=== PATIENT | male | born 1980 | race Caucasian/White ===

== ENCOUNTER 2018-12-21 17:40 | Observation (INO) | payer SELFPAY ==
--- NOTE | 2018-12-21 17:46 | PDOC ---
History of Present Illness - General Chief Complaint: Wound Stated Complaint: SWELLING OF FACE Time Seen by Provider: 12/21/18 17:46 History Source: Patient - History of Present Illness Initial Comments: 12/21/18 18:37 The patient is a 38 year old male with a PMH of Asthma (1 hospitalization, no intubations) presents to the ED c/o diffuse facial rash. Patient recently returned from a 1 week trip to the [facility]. On the plane ride home patient had a subjective fever. States he noticed a facial sunburn 2-3 days after returning to the [place] - he self exfoliated part of his skin while showering and applied coconut oil, aloe vera and lamb butter however the rash spread and started to develop blisters that became purulent today prompting his mother (a former [facility] physician) to bring him to our ED. Patient denies any tongue/pharyngeal swelling, shortness of breath, repeat fevers, chills, nausea/vomiting. NKDA Surgical: none Social: social alcohol, denies other toxic habits As per EMR no prior evaluation in our ED. Past History - Past Medical History Allergies/Adverse Reactions: Allergies Allergy/AdvReac Type Severity Reaction Status Date / Time No Known Allergies Allergy Verified 12/21/18 17:41 Home Medications: Ambulatory Orders Albuterol Sulfate Inhaler - [Ventolin Hfa Inhaler -] 1 - 2 inh PO Q4H 12/21/18 Budesonide/Formeterol Fumarate [SYMBICORT 160/4.5mcg -] 1 inh PO BID 12/21/18 Review of Systems - Review of Systems Constitutional: Yes: Fever. No: Chills HEENTM: Yes: Ear Discharge. No: Recent change in vision, Hearing Loss, Throat Swelling Respiratory: No: Cough, Shortness of Breath Cardiac (ROS): No: Chest Pain, Lightheadedness ABD/GI: No: Constipated, Diarrhea, Nausea, Vomiting *Physical Exam - Physical Exam Comments: 12/21/18 18:51 Alert, non-toxic appearing male HEENT: diffuse vesicular facial rash with some clear discharge; B/L non-bulging/ erythematous TMs w/mild auricular discharge B/L; B/L conjunctivitis CV: S1/S2, no M/R/G Abdomen: soft, no TTP, (+) BS Respiratory: CLTA B/L, no M/R/G ED Treatment Course - LABORATORY CBC & Chemistry Diagram: 12/21/18 18:00 12/21/18 18:00 Medical Decision Making - Medical Decision Making 12/21/18 18:53 38 year old non-toxic appearing male with diffuse vesicular facial rash; h/o recent international travel and facial sunburn with mild exfoliation. VS unremarkable. Frontal diagnosis: cellulitis 2/2 to infected suburn vs. facial impetigo. Also consider bacterial pathogens in light of patient's recent international travel, h/o fever. Will obtain basic labs, wound culture, blood cultures. OTD of Vancomycin and Zosyn Patient declining pain medications at this time. Reassess. 12/21/18 18:57 Patient signed out to Dr. Crouch (Resident) and Dr. Yarbrough (Attending) for further evaluation. Labs, blood cultures pending. Likely disposition is admit for IV antibiotics, ID consult. *DC/Admit/Observation/Transfer Diagnosis at time of Disposition: Impetigo, Cellulitis - Discharge Dispostion Condition at time of disposition: Stable - Referrals - Patient Instructions - Post Discharge Activity
[2018-12-21 18:31] LABS: BASO % 0.4 % (0-2.0); EOS % 3.1 % (0-4.5); HEMATOCRIT 44.5 % (35.4-49); HEMOGLOBIN 15.3 GM/dL (11.7-16.9); LYMPH % 19.4 % (8-40); MCHC 34.4 g/dl (32.0-35.9); MEAN CELL VOLUME 84.2 fl (80-96); MEAN PLT VOLUME 7.3 fl (7.5-11.1); MONO % 10.6 % (3.8-10.2); NEUT % 66.5 % (42.8-82.8); PLATELET COUNT 219 K/MM3 (134-434); RBC 5.28 M/mm3 (4.00-5.60); RDW 13.5 % (11.9-15.9); WHITE BLOOD COUNT 8.5 K/mm3 (4.0-10.0)
[2018-12-21] MEDS ORDERED: VANCOMYCIN 1,000 MG in DEXTROSE 5%-WATER - 250 ML IVPB ONE (18:35)
[2018-12-21] MEDS ORDERED: PIPERACILLIN/TAZOB 4.5 GM 4.5 GM in DEXTROSE 5%-WATER 100 ML IVPB ONE (18:35)
[2018-12-21 19:17] LABS: ERYTHROCYTE SEDIMENTATION RATE 29 mm/hr (0-10)
[2018-12-21 19:20] LABS: ALBUMIN 3.2 g/dl (3.4-5.0); ALK PHOS 94 U/L (45-117); BILIRUBIN,TOTAL 0.3 mg/dL (0.2-1); BLOOD UREA NITROGEN 12 mg/dL (7-18); CO2 26 mmol/L (21-32); GLUCOSE,RANDOM 104 mg/dL (74-106); SGOT/AST 17 U/L (15-37); SGPT/ALT 32 U/L (13-61); TOT PROT 7.5 g/dl (6.4-8.2)
[2018-12-21] MEDS ORDERED: PIPERACILLIN/TAZOB 4.5 GM 4.5 GM/100 ML BAG IVPB ONE (19:20)
[2018-12-21] MEDS ORDERED: VANCOMYCIN 1 GRAM (PRE-DOCKED) 1,000 MG/250 ML BAG IVPB ONE (19:21)
--- NOTE | 2018-12-21 19:44 | PDOC ---
*Physical Exam - Vital Signs Last Vital Signs Temp Pulse Resp BP Pulse Ox 98.1 F 81 18 129/73 95 12/21/18 17:45 12/21/18 17:45 12/21/18 17:45 12/21/18 17:45 12/21/18 17:45 - Physical Exam Comments: 12/21/18 19:41 General Appearance: Nourished. No Apparent Distress HEENT: Diffuse facial rash noted with a honeycomb appearance. Bilateral conjunctiva injection. No Pharyngeal Erythema, Tonsillar Exudate, Tonsillar Erythema Neck: No Cervical Lymphadenopathy Respiratory/Chest: Lungs Clear, Normal Breath Sounds. No Crackles, Rales, Rhonchi, Wheezing Cardiovascular: Regular Rhythm, Regular Rate. No Murmur, Gallops, Rubs Gastrointestinal/Abdominal: Normal Bowel Sounds, Soft. No Guarding, Rebound, Tenderness Musculoskeletal: No CVA Tenderness Extremity: Normal Capillary Refill Integumentary: Normal Color, Dry, Warm Neurologic: Fully Oriented, Alert, Normal Mood/Affect, Normal Response, ED Treatment Course - LABORATORY CBC & Chemistry Diagram: 12/21/18 18:00 12/21/18 18:00 - ADDITIONAL ORDERS Additional order review: Laboratory Results 12/21/18 18:00 Sodium Potassium Chloride Carbon Dioxide 26 Anion Gap No Result Required. BUN 12 Creatinine 1.0 Creat Clearance w eGFR 84.55 Random Glucose 104 Calcium Total Bilirubin 0.3 AST 17 ALT 32 Alkaline Phosphatase 94 C-Reactive Protein 3.6 H Total Protein 7.5 Albumin 3.2 L 12/21/18 18:00 RBC 5.28 MCV 84.2 MCHC 34.4 RDW 13.5 MPV 7.3 L Neutrophils % 66.5 Lymphocytes % 19.4 Monocytes % 10.6 H Eosinophils % 3.1 Basophils % 0.4 Progress Note - Progress Note Progress Note: Received sign out from Dr. Jara. The patient is a 38 year old male who presented for evaluation of a diffuse facial rash. The patient is pending cbc, cmp for further work up. The rash appears to be a diffuse impetigo and the patient was treated with vanc and zosyn here in the ED. He will require obs admission for further management. Medical Decision Making - Medical Decision Making 12/21/18 20:41 CBC, CMP are unremarkable. We discussed the case with the admitting team who accepted the patient for admission. *DC/Admit/Observation/Transfer Diagnosis at time of Disposition: Impetigo Cellulitis Qualifiers: Site of cellulitis: face Qualified Code(s): L03.211 - Cellulitis of face - Discharge Dispostion Condition at time of disposition: Stable Decision to Admit order: Yes - Referrals - Patient Instructions - Post Discharge Activity
[2018-12-21] MEDS ORDERED: ALBUTEROL SO4 8 GM HFA INHALER IH PRN (20:35)
--- NOTE | 2018-12-21 20:39 | PN ---
Teaching Attending Note Name of Resident: Yan Tafoya ATTENDING PHYSICIAN STATEMENT I saw and evaluated the patient. I reviewed the resident's note and discussed the case with the resident. I agree with the resident's findings and plan as documented. SUBJECTIVE: Seen and examined; please refer to resident note for further historical information. Briefly, this is a 38 y/o male PMH asthma presents to the ER with a CC of facial rash/cellulitis. Went to the [facility] 1 week ago and got sunburnt; started desquamating and was trying to treat with home remedies. The rash worsened and developed vesicles and some pain. His mother, a MD, recommended he come to the ER for further assessment. It is located over the front of his face and doesn't spread to other areas where he was found to be sunburnt. He did go swimming while on vacation, and to the best of his recollection it was in saltwater. He denies having any open wounds, etc. 10 sys ROS done and negative aside from HPI PMH, PSH, SH, FH reviewed Home Medications Medication Instructions Recorded Albuterol Sulfate Inhaler - 1 - 2 inh PO Q4H 12/21/18 [Ventolin Hfa Inhaler -] Budesonide/Formeterol Fumarate 1 inh PO BID 12/21/18 [SYMBICORT 160/4.5mcg -] OBJECTIVE: VS, labs, imaging reviewed NAD, AAO, resting comfortably in bed NC AT EOMI PERRLA Impitego-like changes covering face with some adjacent cellulitic changes; some crusted vesicles NT ND +BS CN2-12 wnl, no fnd Normal mood, appropriate behavior ASSESSMENT AND PLAN: 1) Facial cellulitis vs. impetigo -Will cover with IV vancomycin and ceftriaxone for now; afebrile and hemodynamically stable with no white count. No visual changes -Will consider presence of atypical mycobacteria, vibrio, etc. with recent travel history -Pain control 2) Asthma -Continue home medications
--- NOTE | 2018-12-21 20:44 | HP ---
Addendum entered and electronically signed by Yan Tafoya, RESIDENT 21:21: Added on Ceftriaxone for G- coverage given report of swimming on vacation Original Note: <Yan Tafoya - Last Filed: 12/21/18 20:37> CHIEF COMPLAINT: facial rash PCP: HISTORY OF PRESENT ILLNESS: Patient is a 38 y/o M w/ PMHx asthma p/w diffuse vesicular facial rash with clear discharge. 1 w/a went on trip to [facility], developed sunburn upon return, facial skin began desquamating several days after return, Pt attempted home topical remedies without relief, rash began spreading to cover face diffusely and became vesicular with discharge. ROS otherwise negative. No other skin areas affected. Afebrile w/ stable vitals on presentation. No WBC elevation. Given vancomycin and zosyn in ED. Recent Travel: As per HPI PAST MEDICAL HISTORY: As per HPI PAST SURGICAL HISTORY: none Social History: Smoking: no Alcohol: socially Drugs: no Family History: Allergies No Known Allergies Allergy (Verified 12/21/18 17:41) HOME MEDICATIONS: Home Medications Medication Instructions Recorded Albuterol Sulfate Inhaler - 1 - 2 inh PO Q4H 12/21/18 [Ventolin Hfa Inhaler -] Budesonide/Formeterol Fumarate 1 inh PO BID 12/21/18 [SYMBICORT 160/4.5mcg -] REVIEW OF SYSTEMS As per HPI PHYSICAL EXAMINATION Vital Signs - 24 hr 12/21/18 17:45 Temperature 98.1 F Pulse Rate 81 Respiratory 18 Rate Blood Pressure 129/73 O2 Sat by Pulse 95 Oximetry (%) GENERAL: A&Ox3, NAD HEAD: diffuse vesicular rash anteriorly with clear discharge EYES: +conjunctival injection, PERRLA, EOMI EARS, NOSE, THROAT: Ears normal, nares patent, oropharynx clear without exudates. Moist mucous membranes. NECK: Normal range of motion, supple without lymphadenopathy, JVD, or masses. LUNGS: CTA b/l HEART: RRR no m/r/g ABDOMEN: Soft, nontender, not distended, normoactive bowel sounds, no guarding, no rebound, no masses. No hepatomegaly or splenomegaly. MUSCULOSKELETAL: Normal range of motion at all joints. No bony deformities or tenderness. No CVA tenderness. UPPER EXTREMITIES: 2+ pulses, warm, well-perfused. No cyanosis. No clubbing. No peripheral edema. LOWER EXTREMITIES: 2+ pulses, warm, well-perfused. No calf tenderness. No peripheral edema. NEUROLOGICAL: bioprocess engineer, motor, sensory systems w/o focal deficit PSYCHIATRIC: Cooperative. Good eye contact. Appropriate mood and affect. SKIN: Warm, dry, normal turgor, no affected skin regions apart from face Laboratory Results - last 24 hr 12/21/18 12/21/18 18:00 18:00 WBC 8.5 RBC 5.28 Hgb 15.3 Hct 44.5 MCV 84.2 MCH 29.0 MCHC 34.4 RDW 13.5 Plt Count 219 MPV 7.3 L Absolute Neuts (auto) 5.6 Neutrophils % 66.5 Lymphocytes % 19.4 Monocytes % 10.6 H Eosinophils % 3.1 Basophils % 0.4 Nucleated RBC % 0 ESR 29 H Sodium Potassium Chloride Carbon Dioxide 26 Anion Gap No Result Required. BUN 12 Creatinine 1.0 Creat Clearance w eGFR 84.55 Random Glucose 104 Calcium Total Bilirubin 0.3 AST 17 ALT 32 Alkaline Phosphatase 94 C-Reactive Protein 3.6 H Total Protein 7.5 Albumin 3.2 L ASSESSMENT/PLAN: A: -38 y/o M w/ PMHx asthma p/w diffuse facial cellulitis 2/2 desquamating sunburn from foreign travel -local infection, no signs of sepsis -given Vancomycin/Zosyn in ED P: -ID consulted by ED -initiating Clindamycin, may be transitioned to PO in AM -BCx and wound Cx pending -restarted home inhalers -no IVF -f/u BMP -regular diet -mechanical DVT PPx -full code -observe on med/surg Visit type - Emergency Visit Emergency Visit: Yes Care time: The patient presented to the Emergency Department on the above date and was hospitalized for further evaluation of their emergent condition. - New Patient This patient is new to me today: Yes Date on this admission: 12/21/18 - Critical Care Critical Care patient: No <Enzo Su - Last Filed: 12/22/18 22:20> Seen and examined; agree with above aside from what is supplemented in my own documentation. Repeated all oakley parts of exam, supervised all vital parts of patient care.
[2018-12-21] MEDS ORDERED: CEFTRIAXONE 1 GM in DEXTROSE 5%-WATER - 50 ML IVPB ONE (21:07)
[2018-12-21 21:18] LABS: CALCIUM 8.9 mg/dL (8.5-10.1); POTASSIUM 3.7 mmol/L (3.5-5.1)
[2018-12-21 21:23] LABS: ALBUMIN 3.6 g/dl (3.4-5.0); ALK PHOS 103 U/L (45-117); ANION GAP 7 MMOL/L (8-16); BILIRUBIN,TOTAL 0.6 mg/dL (0.2-1); BLOOD UREA NITROGEN 12 mg/dL (7-18); CALCIUM 8.7 mg/dL (8.5-10.1); CHLORIDE 103 mmol/L (98-107); CO2 27 mmol/L (21-32); CREATININE 1.1 mg/dL (0.55-1.3); GLUCOSE,RANDOM 112 mg/dL (74-106); POTASSIUM 3.7 mmol/L (3.5-5.1); SGOT/AST 16 U/L (15-37); SGPT/ALT 37 U/L (13-61); SODIUM 137 mmol/L (136-145); TOT PROT 7.6 g/dl (6.4-8.2)
[2018-12-21 22:19] VITALS: BMI 26.9
[2018-12-21] MEDS ORDERED: DEXTROSE 5%-WATER - 50 ML IVPB ONE (22:32)
[2018-12-21] MEDS ORDERED: cefTRIAXone SODIUM 1 GM VIAL ONE (22:32)
[2018-12-21] MEDS: BUDESONIDE/FORMETEROL FUMARATE 160/4.5 mcg INHALER IH SCH (22:40)
[2018-12-22] MEDS ORDERED: CLINDAMYCIN 300 MG PREMIX IVPB 300 MG/50 ML BAG IVPB SCH (02:00)
--- NOTE | 2018-12-22 02:08 | PDOC ---
Documentation entered by Rajeev Bergman SCRIBE, acting as scribe for Mellissa Yarbrough MD. Mellissa Yarbrough MD: This documentation has been prepared by the Madalyn ac Nirvannie, SCRIBE, under my direction and personally reviewed by me in its entirety. I confirm that the documentation accurately reflects all work, treatment, procedures, and medical decision making performed by me. Attending Attestation - Resident Resident Name: EstefaniAngie - ED Attending Attestation I have performed the following: I have examined & evaluated the patient, The case was reviewed & discussed with the resident, I agree w/resident's findings & plan - HPI HPI: 12/21/18 18:39 The patient is a 38 year old male, with a significant past medical history of asthma, who presents to the emergency department with, diffuse facial rash. As per patient, he was recently in the [facility] for a week and upon his arrival he began to experience a diffuse rash to the face which he put coconut oil, aloe vera, and lamb butter on his wound, without relief. He notes 2 days of subjective fevers and chills. Today he notes, purulent discharge from his wounds prompting his arrival to the ED. He denies any recent nausea, vomit, diarrhea or constipation. He denies any recent chest pain or shortness of breath. Allergies: Asthma - Physicial Exam PE: 12/21/18 18:39 GENERAL: Well-appearing, well-nourished. No apparent distress. HEENT: +Extensive wound with erythema and weeding to the diffuse face. Injected conjunctiva. CARDIOVASCULAR: EXTREMITIES: Normal ROM in all four extremities. No gross deformities. SKIN: +abrasion to the left elbow s/p fall. NEUROLOGICAL: No focal neurological deficits. - Medical Decision Making 12/22/18 02:07 diff diag includes impetigo, contact dermatitis,cellulitis pt admitted for further eval, empiric antibiotics
[2018-12-22 07:28] LABS: BASO % 0.2 % (0-2.0); EOS % 1.4 % (0-4.5); HEMATOCRIT 41.7 % (35.4-49); HEMOGLOBIN 14.4 GM/dL (11.7-16.9); LYMPH % 13.4 % (8-40); MCH 28.7 pg (25.7-33.7); MCHC 34.7 g/dl (32.0-35.9); MEAN CELL VOLUME 82.9 fl (80-96); MEAN PLT VOLUME 7.3 fl (7.5-11.1); MONO % 10.9 % (3.8-10.2); NEUT % 74.1 % (42.8-82.8); PLATELET COUNT 223 K/MM3 (134-434); RBC 5.03 M/mm3 (4.00-5.60); RDW 13.5 % (11.9-15.9); WHITE BLOOD COUNT 9.3 K/mm3 (4.0-10.0)
[2018-12-22 07:56] LABS: ANION GAP 8 MMOL/L (8-16); BLOOD UREA NITROGEN 12 mg/dL (7-18); CALCIUM 8.6 mg/dL (8.5-10.1); CHLORIDE 105 mmol/L (98-107); CO2 27 mmol/L (21-32); GLUCOSE,RANDOM 108 mg/dL (74-106); MAGNESIUM 1.8 mg/dL (1.8-2.4); PHOSPHOROUS 4.5 mg/dL (2.5-4.9); POTASSIUM 4.3 mmol/L (3.5-5.1); SODIUM 140 mmol/L (136-145)
[2018-12-22 08:13] VITALS: BP 119/72
[2018-12-22] MEDS ORDERED: LACTATED RINGERS SOLUTION 1,000 ML/1,000 ML INFUS.BAG IV SCH (08:45)
--- NOTE | 2018-12-22 09:47 | PN ---
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) developed fever Saturday night after return, face became red , fever resolved he thought he had sun burn face started desquamating on he used topicals coconut oil, aloe vera gel, lamb butter, face got stiff with blisters and started draining no further fevers came to ED pmh seasonal allergies, mild asthma swam in ocean while in [facility] suspect impetigo no history of prior excema would continue strep/staph coverage-vancomycin/rocephin for now, po clindamycin 300 tid for discharge and ask dermatology to evaluate contact isolation for 24 hours d/w hospitalist service spoke with derm- she will be in at 5 pm to see him thanks
[2018-12-22] MEDS ORDERED: VANCOMYCIN HCL 1,250 MG in DEXTROSE 5%-WATER - 250 ML IVPB SCH (10:00)
[2018-12-22] MEDS ORDERED: CEFTRIAXONE 1 GM in DEXTROSE 5%-WATER - 50 ML IVPB SCH (10:15)
[2018-12-22] MEDS ORDERED: SODIUM CHLORIDE 1,000 ML IV SCH (10:15)
[2018-12-22] MEDS ORDERED: DEXTROSE 5%-WATER - 50 ML IVPB ONE (10:29)
[2018-12-22] MEDS ORDERED: cefTRIAXone SODIUM 1 GM VIAL ONE (10:29)
[2018-12-22] MEDS: BUDESONIDE/FORMETEROL FUMARATE 160/4.5 mcg INHALER IH SCH (10:38)
--- NOTE | 2018-12-22 11:39 | PN ---
Teaching Attending Note Name of Resident: Hung Mccormack ATTENDING PHYSICIAN STATEMENT I saw and evaluated the patient. I reviewed the resident's note and discussed the case with the resident. I agree with the resident's findings and plan as documented. SUBJECTIVE: He reports he is feeling better. OBJECTIVE: Vital Signs Period Temp Pulse Resp BP Sys/Ruvalcaba Pulse Ox Last 24 Hr 98.1 F-98.4 F 66-81 18-20 119-129/62-73 95-98 HEART: S1S2, RRR LUNGS: Clear ABDOMEN: Soft, non-tender, non-distended, normal BS EXTREMITIES: No edema SKIN: Sharply demarcated desquamating, yellow crusted rash on face sparing nose , chin, and scalp except one area at top of head and on back of neck Laboratory Results - last 24 hr 12/21/18 12/21/18 12/21/18 18:00 18:00 20:35 WBC 8.5 RBC 5.28 Hgb 15.3 Hct 44.5 MCV 84.2 MCH 29.0 MCHC 34.4 RDW 13.5 Plt Count 219 MPV 7.3 L Absolute Neuts (auto) 5.6 Neutrophils % 66.5 Lymphocytes % 19.4 Monocytes % 10.6 H Eosinophils % 3.1 Basophils % 0.4 Nucleated RBC % 0 ESR 29 H Sodium 137 Potassium 3.7 Chloride 103 Carbon Dioxide 26 28 Anion Gap No Result Required. 6 L BUN 12 Creatinine 1.0 Creat Clearance w eGFR 84.55 Random Glucose 104 Calcium 8.9 Phosphorus Magnesium Total Bilirubin 0.3 AST 17 ALT 32 Alkaline Phosphatase 94 C-Reactive Protein 3.6 H Total Protein 7.5 Albumin 3.2 L 12/21/18 12/22/18 12/22/18 20:35 06:30 06:30 WBC 9.3 RBC 5.03 Hgb 14.4 Hct 41.7 MCV 82.9 MCH 28.7 MCHC 34.7 RDW 13.5 Plt Count 223 MPV 7.3 L Absolute Neuts (auto) 6.9 Neutrophils % 74.1 Lymphocytes % 13.4 D Monocytes % 10.9 H Eosinophils % 1.4 Basophils % 0.2 Nucleated RBC % 0 ESR Sodium 137 140 Potassium 3.7 4.3 Chloride 103 105 Carbon Dioxide 27 27 Anion Gap 7 L 8 BUN 12 12 Creatinine 1.1 1.0 Creat Clearance w eGFR 75.74 84.55 Random Glucose 112 H 108 H Calcium 8.7 8.6 Phosphorus 4.5 Magnesium 1.8 Total Bilirubin 0.6 AST 16 ALT 37 Alkaline Phosphatase 103 C-Reactive Protein Total Protein 7.6 Albumin 3.6 Current Medications Generic Name Dose Route Start Last Admin Trade Name Freq PRN Reason Stop Dose Admin Albuterol Sulfate 2 puff 12/21/18 20:35 Ventolin Hfa Inhaler - IH Q4H PRN SHORT OF BREATH/WHEEZING Budesonide/Formoterol Fumarate 1 puff 12/21/18 22:00 12/22/18 10:38 Symbicort 160/4.5mcg - IH 1 puff BID LOS Administration Vancomycin HCl 1,250 mg/ 250 mls @ 166.667 mls/hr 12/22/18 10:00 Dextrose IVPB Q12H LOS Protocol Sodium Chloride 1,000 mls @ 100 mls/hr 12/22/18 10:15 12/22/18 10:36 Normal Saline - IV 100 mls/hr ASDIR LOS Administration Ceftriaxone Sodium 1 gm/ 50 mls @ 100 mls/hr 12/22/18 10:15 12/22/18 10:35 Dextrose IVPB 100 mls/hr DAILY LOS Administration Protocol ASSESSMENT AND PLAN: This is a 38 year old man with a history of asthma who presented to the ED with a rash on his face which developed after returning home from a trip to the [facility]. 1. Impetigo of the face - Continue ceftriaxone, vancomycin - Wound culture pending - Dermatology evaluation 2. Asthma - Stable - Continue Symbicort, albuterol as needed
[2018-12-22] MEDS ORDERED: MUPIROCIN 2% TOPICAL OINTMENT 22 GM TUBE TP SCH (13:15)
--- NOTE | 2018-12-22 13:38 | DS ---
Physical Exam: SUBJECTIVE: Patient seen and examined OBJECTIVE: Vital Signs Period Temp Pulse Resp BP Sys/Ruvalcaba Pulse Ox Last 24 Hr 98.1 F-98.4 F 66-81 18-20 119-129/62-73 95-98 PHYSICAL EXAM GENERAL: The patient is awake, alert, and fully oriented, in no acute distress. HEAD: Normal with no signs of trauma. EYES: PERRL, extraocular movements intact, sclera anicteric, conjunctiva clear. ENT: Ears normal, nares patent, oropharynx clear without exudates, moist mucous membranes. NECK: Trachea midline, full range of motion, supple. LUNGS: Breath sounds equal, clear to auscultation bilaterally, no wheezes, no crackles, no accessory muscle use. HEART: Regular rate and rhythm, S1, S2 without murmur, rub or gallop. ABDOMEN: Soft, nontender, nondistended, normoactive bowel sounds, no guarding, no rebound, no hepatosplenomegaly, no masses. EXTREMITIES: 2+ pulses, warm, well-perfused, no edema. NEUROLOGICAL: Cranial nerves II through XII grossly intact. Normal speech, gait not observed. PSYCH: Normal mood, normal affect. SKIN: Warm, dry, normal turgor, no rashes or lesions noted. LABS Laboratory Results - last 24 hr 12/21/18 12/21/18 12/21/18 18:00 18:00 20:35 WBC 8.5 RBC 5.28 Hgb 15.3 Hct 44.5 MCV 84.2 MCH 29.0 MCHC 34.4 RDW 13.5 Plt Count 219 MPV 7.3 L Absolute Neuts (auto) 5.6 Neutrophils % 66.5 Lymphocytes % 19.4 Monocytes % 10.6 H Eosinophils % 3.1 Basophils % 0.4 Nucleated RBC % 0 ESR 29 H Sodium 137 Potassium 3.7 Chloride 103 Carbon Dioxide 26 28 Anion Gap No Result Required. 6 L BUN 12 Creatinine 1.0 Creat Clearance w eGFR 84.55 Random Glucose 104 Calcium 8.9 Phosphorus Magnesium Total Bilirubin 0.3 AST 17 ALT 32 Alkaline Phosphatase 94 C-Reactive Protein 3.6 H Total Protein 7.5 Albumin 3.2 L 12/21/18 12/22/18 12/22/18 20:35 06:30 06:30 WBC 9.3 RBC 5.03 Hgb 14.4 Hct 41.7 MCV 82.9 MCH 28.7 MCHC 34.7 RDW 13.5 Plt Count 223 MPV 7.3 L Absolute Neuts (auto) 6.9 Neutrophils % 74.1 Lymphocytes % 13.4 D Monocytes % 10.9 H Eosinophils % 1.4 Basophils % 0.2 Nucleated RBC % 0 ESR Sodium 137 140 Potassium 3.7 4.3 Chloride 103 105 Carbon Dioxide 27 27 Anion Gap 7 L 8 BUN 12 12 Creatinine 1.1 1.0 Creat Clearance w eGFR 75.74 84.55 Random Glucose 112 H 108 H Calcium 8.7 8.6 Phosphorus 4.5 Magnesium 1.8 Total Bilirubin 0.6 AST 16 ALT 37 Alkaline Phosphatase 103 C-Reactive Protein Total Protein 7.6 Albumin 3.6 HOSPITAL COURSE: Date of Admission:12/21/18 Date of Discharge: 12/22/18 Discharge Summary Reason For Visit: SWELLING OF FACE Current Active Problems Cellulitis (Acute) Impetigo (Acute) Condition: Improved - Instructions Diet, Activity, Other Instructions: You were admitted to the hospital for the treatment of a likely skin infection on your face We treated you with IV fluids and antibiotics It is possible that you have Impetigo, an infection on your skin, which could have been superimposed on a sunburn you got while on vacation Please take clindamycin 300mg three times a day for 7 days Please followup with the stripe marker within 1 month of discharge Please followup with your primary care doctor within 1 week of discharge If you experience severe fevers, chills, drainage from the infection, or worsening of the rash, please return to the emergency Disposition: HOME - Home Medications Comprehensive Discharge Medication List: Ambulatory Orders Albuterol Sulfate Inhaler - [Ventolin Hfa Inhaler -] 1 - 2 inh PO Q4H 12/21/18 Budesonide/Formeterol Fumarate [SYMBICORT 160/4.5mcg -] 1 inh PO BID 12/21/18 Clindamycin [Cleocin -] 300 mg PO TID 21 Days #21 capsule 12/22/18
[2018-12-22 15:37] VITALS: PULSE 96; TEMP 98.6
--- NOTE | 2018-12-22 19:46 | CONS ---
INFECTIOUS DISEASE CONSULTATION DATE OF CONSULTATION: DATE OF DICTATION: 12/22/2018 This is a 38-year-old man, otherwise healthy except for mild asthma, who returned after a trip to the [facility] from the December 06 until the . He was there for work. He was doing some filming. Upon return on the , he developed fever Saturday night. Subsequently, his face became red. He thought he had a sunburn, and the fever resolved. His face started to desquamate on . He used topicals, coconut oil, aloe vera gel, and lamb butter. The face got stiff with some blistering, and he started draining some clear fluids. His fevers had resolved by Saturday. He was noticing his face was getting stiff. It was hard for him to open his mouth. He came to the emergency room where he was admitted. PAST MEDICAL HISTORY: Notable for seasonal allergies and mild asthma. He uses Ventolin and Symbicort as needed. PAST SURGICAL HISTORY: He has never had any surgery. SOCIAL HISTORY: There is no history of cigarette or substance use, he works in [employer], and he lives in [facility]. On his trip to [facility], he swam in sea water, spent a lot of time outside, but he was wearing a shirt for most of it when he developed this, what he thought was sunburn. FAMILY HISTORY: Notable for heart disease and end-stage renal disease in his father. REVIEW OF SYSTEMS: He denies any sores in his mouth. He has no trouble swallowing. He was able to eat breakfast this morning. He reports his swelling has improved. In the emergency, he received vancomycin, Zosyn, and ceftriaxone. PHYSICAL EXAMINATION: General: He is a young man in no acute distress. Vital Signs: Temperature is 98.4. Pulse is 68. Blood pressure 119/72. Respiratory rate is 20. He is saturating 99% on room air. HEENT: He is normocephalic. His eyes are anicteric. He has no thrush. He has no sores in his mouth. Neck: Supple. Lungs: Clear to auscultation. Heart: Regular rate and rhythm. Abdomen: Soft, nontender. Extremities: Without edema. Skin: Notable for he has these crusting lesions with deutsch yellow scaling of his face, spares the nose and chin. He has 1 area on top of his head, and he has a patch on his back. It extends to his cheeks and to his ears, and they are all weeping serous fluid. LABORATORY DATA: His labs are notable for a white count of 9.3, hemoglobin 14.4, platelets are 223. BUN is 12 and creatinine 1. LFTs are normal. Blood cultures and culture of his face are all pending. In summary, this is a healthy, 38-year-old man who I suspect has impetigo. No prior history of eczema. I would continue Streptococcus and staphylococcus coverage, vancomycin and Rocephin, p.o. clindamycin 300 t.i.d. for discharge. Would ask Dermatology to evaluate. Would maintain contact isolation for 24 hours. Case was discussed with the hospitalist service, who has discussed with Dermatology, who will be in to see the patient, as well as case was discussed with the family. YEN MYLES M.D. [id number]
== END 2018-12-22 18:27 | disposition home or self-care (01) ==
LOC: JER 17:40 → JERBED 19:53 → J8W 21:37
PROVIDERS: ADMIT Internal Medicine; ATTEND Internal Medicine
PROC: 3E03329 Introduction of Other Anti-infective into Peripheral Vein, Percutaneous Approach (ICD-10-PCS; principal; 2018-12-21)
PROC: 3E0337Z Introduction of Electrolytic and Water Balance Substance into Peripheral Vein, Percutaneous Approach (ICD-10-PCS; 2018-12-21)
PROC: 3E0F7GC Introduction of Other Therapeutic Substance into Respiratory Tract, Via Natural or Artificial Opening (ICD-10-PCS; 2018-12-21)
DX: L01.00 Impetigo, unspecified (principal); L03.211 Cellulitis of face; J45.909 Unspecified asthma, uncomplicated
CPT/HCPCS: 36415; 80048; 80051; 80053; 82310; 83735; 84100; 85025; 85651; 86140; 87040; 87070; 87186; 87205; 99282-25; G0378; J7030